=== PATIENT | female | born 1985 | race African-American/Black ===

== ENCOUNTER 2022-05-29 09:07 | Emergency (ER) | payer BC ==
[~2022-05-29] VITALS: Ht 160 cm; Wt 69.9 kg
[2022-05-29] MEDS ORDERED: SODIUM CHLORIDE 0.9% 1000ML 1,000 ML IV STA (09:32)
[2022-05-29 09:50] LABS: BASOPHILS % 0.4 % (0.0-1.0); EOSINOPHILS # (AUTO) 0.1 (0.0-0.4); EOSINOPHILS % 1.3 % (0.0-6.0); HEMATOCRIT 39.9 % (34.2-44.1); HEMOGLOBIN 12.7 g/dL (12.0-16.0); LYMPHOCYTES # (AUTO) 1.9 (1.0-3.2); LYMPHOCYTES % 34.9 % (18.0-39.1); MEAN CORPUSCULAR HEMOGLOBIN 31.2 pg (28-32); MEAN CORPUSCULAR HGB CONC 31.8 g/dL (31-35); MONOCYTES # (AUTO) 0.5 (0.2-0.8); MONOCYTES % 8.6 % (4.4-11.3); NEUTROPHILS # (AUTO) 2.9 (2.1-6.9); NEUTROPHILS % 54.6 % (38.7-80.0); PLATELET COUNT 240 x10e3/uL (140-360); RED BLOOD COUNT 4.07 x10e6/uL (3.6-5.1); RED CELL DISTRIBUTION WIDTH 12.9 % (11.7-14.4)
[2022-05-29 10:06] LABS: ANION GAP 10.6 mmol/L (8-16); CALCIUM 9.4 mg/dL (8.4-10.2); CREATININE, SERUM 0.71 mg/dL (0.57-1.11); POTASSIUM 3.6 mmol/L (3.5-5.1)
[2022-05-29 10:23] LABS: HCG,QUANTITATIVE 4870.85 mIU/mL (0-10)
[2022-05-29 12:59] VITALS: BP 118/85
== END 2022-05-29 13:00 | disposition home or self-care (01) ==
LOC: ER 09:34
DX: O03.9 Complete or unspecified spontaneous abortion without complication (principal); R10.30 Lower abdominal pain, unspecified
CPT/HCPCS: 36415; 76801; 76817; 80053; 84702; 85025; 86900; 99283; J7030